=== PATIENT | male | born 1950 | race Two or more races ===

== ENCOUNTER 2017-02-05 07:59 | Day surgery (SDC) | payer OTHER ==
[~2017-02-05] VITALS: Ht 157.5 cm; Wt 81.0 kg
[2017-02-05 09:14] VITALS: Ht 157.5 cm; Wt 81.0 kg
[2017-02-05] MEDS ORDERED: AMLODIPINE PO (09:20)
[2017-02-05] MEDS ORDERED: METFORMIN PO (09:20)
[2017-02-05] MEDS ORDERED: BENAZEPRIL PO (09:20)
[2017-02-05 09:31] VITALS: BP 131/70; PULSE 53; RESP 21
[2017-02-05 09:49] VITALS: BP 117/67; PULSE 53; RESP 18
[2017-02-05] MEDS ORDERED: FENTAnyl 50 MCG/ML VIAL ONE (09:53)
[2017-02-05] MEDS ORDERED: MIDAZOLAM 1 MG/ML 2 ML INJ ONE ×2 (09:53→09:54)
[2017-02-05 10:29] VITALS: BP 135/80; PULSE 58; RESP 19
--- NOTE | 2017-02-05 10:31 | GILP ---
DATE OF PROCEDURE: NAME OF PROCEDURE: Colonoscopy. SURGEON: Angelina Navarro MD PREOPERATIVE DIAGNOSIS: Positive occult blood in the stool. POSTOPERATIVE DIAGNOSES: 1. Colonoscopy all the way to the cecum. 2. Diverticulosis of the colon. 3. Internal hemorrhoids. 4. No colon neoplasm was identified. INDICATION FOR THE PROCEDURE: Mr. Loki Quezada is a 66-year-old male patient who was noted t o have positive occult blood in the stool. The patient was scheduled for colonoscopy for further ev aluation. The procedure and possible complications were well explained to the patient. He understood and cons ented to the procedure. DESCRIPTION OF PROCEDURE: Under the influence of fentanyl and Versed the colonoscope was carefully introduced in the rectum and under direct vision it was advanced all the way to the cecum. FINDINGS: The patient had diverticulosis of the colon. He also had internal hemorrhoids. No colon neoplasm was identified. The patient tolerated the procedure very well and there was no complication from the procedure. At the end of the procedure he was awake with stable vital signs and he was discharged home to the care of his family. IMPRESSION: 1. Colonoscopy all the way to the cecum. 2. Mild diverticulosis of the colon. 3. Internal hemorrhoids. 4. No colon neoplasm was identified. 5. Positive occult blood is secondary to hemorrhoids. PLAN: 1. Next screening colonoscopy in 10 years. 2. Advised a high-fiber diet. Dictated By: ANGELINA OLIVO/ANN Conf#: [id number] DID#: [id number]
== END 2017-02-05 14:44 | disposition home or self-care (01) ==
LOC: GIL 07:59
PROVIDERS: ATTEND Internal Medicine Gastroenterology
DX: K92.1 Melena (principal); K57.90 Diverticulosis of intestine, part unspecified, without perforation or abscess without bleeding; K64.8 Other hemorrhoids; I10 Essential (primary) hypertension; E11.9 Type 2 diabetes mellitus without complications
CPT/HCPCS: 45378; 82962; J2250; J3010